=== PATIENT | female | born 1950 | race Caucasian/White ===

== ENCOUNTER 2023-03-29 10:07 | Outpatient (OUT) | payer MEDICARE, SELFPAY ==
[2023-03-29 10:31] LABS: Basophils Percent Auto 0.3 % (0.2-2.0); Eosinophils Absolute Auto 0.1 10^3/uL (0.0-0.7); Eosinophils Percent Auto 1.3 % (0.9-7.0); Hemoglobin 13.2 g/dL (12.0-16.0); Immature Granulocytes Abs Auto 0.02 10^3/uL (0.00-0.03); Immature Granulocytes Pct Auto 0.3 % (0.0-0.5); Lymphocytes Absolute Auto 1.4 10^3/uL (1.2-3.8); Lymphocytes Percent Auto 21.7 % (20.5-60.0); Mean Corpuscular HGB Conc 34.7 g/dL (29.9-35.2); Mean Corpuscular Hemoglobin 35.1 pg (26.7-34.0); Mean Corpuscular Volume 101.1 fL (81.0-99.0); Mean Platelet Volume 8.5 fL (9.5-13.5); Monocytes Absolute Auto 0.6 10^3/uL (0.3-0.8); Monocytes Percent Auto 9.2 % (1.7-12.0); Neutrophils Absolute Auto 4.2 10^3/uL (1.4-6.5); Neutrophils Percent Auto 67.2 % (43.0-75.0); Platelet Count 124 10^3/uL (150-450); Red Blood Count 3.76 10^6/uL (4.20-5.40); Red Cell Distribution Width 12.5 % (11.0-15.0); White Blood Count 6.3 10^3/uL (4.0-11.0)
[2023-03-29 10:59] LABS: Alanine Aminotransferase 18 U/L (14-59); Albumin Globulin Ratio 1.2; Albumin Level 4.1 g/dL (3.4-5.0); Alkaline Phosphatase 83 U/L (46-116); Anion Gap 13.3; Aspartate Amino Transferase 14 U/L (15-37); Bilirubin Total 0.6 mg/dL (0.2-1.0); Calcium 9.2 mg/dL (8.5-10.1); Carbon Dioxide 26.1 mmol/L (21.0-32.0); Chloride 103 mmol/L (98-107); Chol HDL Ratio 3.1; Cholesterol 130 mg/dL (<=200); Estimated GFR (African America 58 (>=60); Estimated GFR (Non-African Ame 48 (>=60); Globulin 3.4 g/dL; Glucose 119 mg/dL (74-106); HDL Cholesterol 42 mg/dL (40-60); Potassium 4.4 mmol/L (3.5-5.1); Sodium 138 mmol/L (136-145); Total Protein 7.5 g/dL (6.4-8.2); Triglycerides 70 mg/dL (<=150)
== END 2023-03-29 10:08 | disposition home or self-care (01) ==
LOC: LAB 10:11
PROVIDERS: PCP Family Medicine; Visit Provider Nurse Practitioner
DX: I42.9 Cardiomyopathy, unspecified (principal); I25.10 Atherosclerotic heart disease of native coronary artery without angina pectoris
CPT/HCPCS: 36415; 80053; 80061; 85025

== ENCOUNTER 2024-05-28 12:14 | Outpatient (OUT) | payer OTHER, SELFPAY ==
--- NOTE | 2024-05-28 12:31 | CA_ITS ---
Patient Name: NAZ HERNANDEZ MR#: [id number] : 1950 Exam Date: 05/28/2024 Ordering Doctor: Bob Noyola ECHOCARDIOGRAM REPORT PROCEDURE: CA ECHO DOPPLER COMPLETE INDICATIONS: Cardiomyopathy COMPARISON: None. DESCRIPTION: COMPLETE ECHOCARDIOGRAM Real-time transthoracic echocardiography with 2D, M-mode, spectral and color flow Doppler performed. QUALITY: Technical quality was good. LEFT VENTRICLE: Severe dilatation. Mild concentric left ventricular hypertrophy. LV EF: Global left ventricular systolic function is severely reduced; visually estimated ejection fraction is 5-10%. Diffuse hypokinesis. DIASTOLIC: Grade 2 diastolic dysfunction. ATRIAL SEPTUM: Inadequately seen LEFT ATRIUM: Severe dilatation. RIGHT ATRIUM: Moderate dilatation. RIGHT VENTRICLE: Mild dilatation. Normal right ventricular systolic function. Pacer wire present. TRICUSPID VALVE: Normal mobility and thickness. No stenosis with mild to moderate regurgitation. Mild pulmonary hypertension. RVSP 42mmHg MITRAL VALVE: Normal mobility and thickness. No evidence of mitral valve stenosis. There is no mitral annular calcification. Moderate to severe mitral regurgitation. AORTIC VALVE: Normal trileaflet appearance. Moderately calcified aortic valve. Doppler velocity suggests moderate aortic valve stenosis. DVI 0.3, Vmax 2.2m/s, Mean gradient 11mmHg, TIFF 1.0cm2. Moderate to severe aortic regurgitation. AORTIC ROOT: Normal aortic root diameter. Mildly dilated ascending aorta. PULMONIC VALVE: Normal thickness and mobility. No stenosis. Mild regurgitation. PERICARDIUM: No evidence of pericardial effusion. IVC: Collapses with inspirations. Normal size. CONCLUSION: 1. Global left ventricular systolic function is severely reduced; visually estimated ejection fraction is 5 to 10% 2. The left ventricle is severely dilated and thinned 3. The right ventricle is mildly dilated with normal systolic function 4. Biatrial enlargement 5. Grade 2 diastolic dysfunction 6. Mild to moderate tricuspid regurgitation 7. Mildly elevated right ventricular systolic pressure; RVSP 42 mmHg 8. Moderate to severe mitral regurgitation 9. Moderate aortic valve stenosis; moderate to severe aortic valve regurgitation 10. Mild pulmonic regurgitation 11. The ascending aorta is mildly dilated Adult Echocardiography Procedure Report Left Ventricle LVEDD (3.7 - 5.6 cm): 7.75 cm LVESD (2.2 - 4.0 cm): 7.11 cm LVIVS thickness (0.6 - 1.2 cm): 0.96 cm LVPW thickness (0.5 - 1.0 cm): 1.21 cm e': 0.06 m/s E - e': 12.29 LVOT Max Gradient: 2.01 mm[Hg], 2.01 mm[Hg] LVOT Area (cm2): 0.71 m/s Peak Velocity (LVOT): 0.71 m/s, 0.71 m/s Mean Velocity (LVOT): 0.45 m/s LVOT Diameter 2.03 cm Left Atrium LA Volume Index (2D A2C): 72.39 ml/m2 Left Atrium Systolic Dimension: 5.72 cm Mitral Valve MV E to A Ratio: 1.07 Mitral Valve A-Wave Peak Velocity: 0.71 m/s Mitral Valve E-Wave Peak Velocity: 0.76 m/s Right Ventricle RV Internal Diastolic Dimension: 4.03 cm Aorta AO Root Diam: 3.32 cm Ascending Ao Diam: 3.81 cm Aortic Valve AoV Area ([place]): 1.07 cm2, 1.11 cm2, 1.03 cm2 AoV Area (VTI): 1.18 cm2, 1.41 cm2, 0.99 cm2 Deceleration [place]: 3.72 m/s2, 2.45 m/s2 Pressure Half-Time: 284.28 ms, 423.82 ms Peak Velocity(Antegrade Flow): 2.06 m/s, 2.21 m/s Peak Gradient(Antegrade Flow): 16.93 mm[Hg], 19.57 mm[Hg] Mean Velocity(Antegrade Flow): 1.40 m/s, 1.52 m/s Mean Gradient(Antegrade Flow): 9.06 mm[Hg], 10.66 mm[Hg] Velocity Time Integral: 45.89 cm, 55.10 cm Tricuspid Valve Peak Velocity (Regurgitant Flow): 2.98 m/s, 2.71 m/s, 3.12 m/s Pulmonic Valve Mean Gradient: 1.96 mm[Hg], 2.80 mm[Hg] Mean Velocity: 0.63 m/s, 0.80 m/s Peak Velocity: 1.12 m/s Peak Gradient: 5.00 mm[Hg], 5.09 mm[Hg] Right Atrium Right Atrium Systolic Pressure: 51.90 ml, 51.90 ml Dictated by: Jackson Mckee M.D. on 05/30/2024 at 15:01 Approved by: Jackson Mckee M.D. on 05/30/2024 at 15:08
== END 2024-05-28 12:15 | disposition home or self-care (01) ==
LOC: CARD 12:14
PROVIDERS: PCP Family Medicine; Visit Provider Internal Medicine Cardiovascular Disease
DX: I42.9 Cardiomyopathy, unspecified (principal); R94.31 Abnormal electrocardiogram [ECG] [EKG]
CPT/HCPCS: 93306

== ENCOUNTER 2025-01-15 12:10 | Outpatient (OUT) | payer MEDICARE, SELFPAY ==
[2025-01-15 12:43] LABS: Basophils Percent Auto 0.3 % (0.2-2.0); Eosinophils Absolute Auto 0.1 10^3/uL (0.0-0.7); Eosinophils Percent Auto 2.2 % (0.9-7.0); Hematocrit 34.4 % (36.0-48.0); Hemoglobin 11.9 g/dL (12.0-16.0); Immature Granulocytes Abs Auto 0.01 10^3/uL (0.00-0.03); Immature Granulocytes Pct Auto 0.2 % (0.0-0.5); Lymphocytes Absolute Auto 1.3 10^3/uL (1.2-3.8); Lymphocytes Percent Auto 22.3 % (20.5-60.0); Mean Corpuscular HGB Conc 34.6 g/dL (29.9-35.2); Mean Corpuscular Hemoglobin 36.4 pg (26.7-34.0); Mean Corpuscular Volume 105.2 fL (81.0-99.0); Mean Platelet Volume 8.3 fL (9.5-13.5); Monocytes Absolute Auto 0.7 10^3/uL (0.3-0.8); Monocytes Percent Auto 11.3 % (1.7-12.0); Neutrophils Absolute Auto 3.8 10^3/uL (1.4-6.5); Neutrophils Percent Auto 63.7 % (43.0-75.0); Platelet Count 132 10^3/uL (150-450); Red Cell Distribution Width 13.1 % (11.0-15.0)
[2025-01-15 13:07] LABS: Alanine Aminotransferase 15 U/L (14-59); Albumin Globulin Ratio 1.4; Albumin Level 4.1 g/dL (3.4-5.0); Alkaline Phosphatase 142 U/L (46-116); Anion Gap 14.7; Aspartate Amino Transferase 19 U/L (15-37); BUN Creatinine Ratio 28.1; Bilirubin Total 0.6 mg/dL (0.2-1.0); Calcium 9.3 mg/dL (8.5-10.1); Carbon Dioxide 25.4 mmol/L (21.0-32.0); Chloride 98 mmol/L (98-107); Chol HDL Ratio 2.6; Cholesterol 106 mg/dL (<=200); Estimated GFR (African America 32 (>=60 mL/min/1.73m^2); Estimated GFR (Non-African Ame 27 (>=60 mL/min/1.73m^2); Globulin 2.9 g/dL; Glucose 105 mg/dL (74-106); HDL Cholesterol 41 mg/dL (40-60); LDL Cholesterol Calculated 48.6 mg/dL; Potassium 5.1 mmol/L (3.5-5.1); Sodium 133 mmol/L (136-145); Triglycerides 82 mg/dL (<=150); VLDL CHOLESTEROL 16.4 mg/dL
[2025-01-15 14:03] LABS: Red Blood Count 3.27 10^6/uL (4.20-5.40)
== END 2025-01-15 12:11 | disposition home or self-care (01) ==
LOC: LAB 12:14
PROVIDERS: PCP Family Medicine
DX: I25.10 Atherosclerotic heart disease of native coronary artery without angina pectoris (principal); I50.23 Acute on chronic systolic (congestive) heart failure
CPT/HCPCS: 36415; 80053; 80061; 83880; 85025